=== PATIENT | male | born 1995 | race Caucasian/White ===

== ENCOUNTER 2019-11-06 12:06 | Emergency (ER) | payer SELFPAY ==
[~2019-11-06] VITALS: Ht 157.4 cm; Wt 86.2 kg
[~2019-11-06 12:06] MED LIST: ZITHROMAX Z PA250 MG PO
[2019-11-06] MEDS ORDERED: TESSALON PERLE100 M1 PO (15:02)
[2019-11-06] MEDS ORDERED: PROVENTIL HFA6.7 GM INH (15:02)
[2019-11-06] MEDS ORDERED: AMOXICILLIN500 M2 PO (15:08)
== END 2019-11-06 15:10 | disposition home or self-care (01) ==
LOC: ED 12:06
DX: J40 Bronchitis, not specified as acute or chronic (principal); F17.200 Nicotine dependence, unspecified, uncomplicated

== ENCOUNTER 2023-04-17 02:21 | Emergency (ER) | payer SELFPAY ==
[~2023-04-17] VITALS: Ht 167.6 cm; Wt 79.8 kg
[~2023-04-17 02:21] MED LIST changes: +AMOXICILLIN500 M2 PO; +PROVENTIL HFA6.7 GM INH; +TESSALON PERLE100 M1 PO
[2023-04-17 02:45] LABS: BASO # 0.1 10*3/uL (0.0-0.1); BASO % 0.6 % (0.0-1.0); EOS # 0.1 10*3/uL (0.0-0.4); EOS % 1.2 % (1.0-4.0); HEMATOCRIT 44.1 % (42.0-52.0); LYMPH % 23.6 % (27.0-41.0); MEAN CELL VOLUME 89.6 fl (80.0-94.0); MEAN CORPUSCULAR HGB 31.7 pg (27.0-31.0); MEAN CORPUSCULAR HGB CONC 35.4 g/dl (33.0-37.0); MEAN PLATELET VOLUME 9.8 fl (9.6-12.3); MONO # 0.7 10*3/uL (0.1-1.0); MONO % 8.1 % (3.0-9.0); NEUT # 5.5 10*3/uL (2.3-7.9); NEUT % 66.3 % (47.0-73.0); PLATELET COUNT AUTOMATED 302 10*3/uL (130-400); RED BLOOD COUNT 4.92 10*6/uL (4.50-5.90); RED CELL DISTRI WIDTH 11.9 % (0-14.5); WHITE BLOOD COUNT 8.3 10*3/uL (4.8-10.8)
[2023-04-17 02:55] LABS: ACT PARTIAL THROMBO TIME 29.2 SECONDS (20.0-32.1)
[2023-04-17 03:05] LABS: BILIRUBIN Negative (Negative); BLOOD Negative (Negative); CLARITY Clear (Clear); COLOR Yellow (Yellow); GLUCOSE Negative (Negative); KETONE Negative (Negative); LEUKO ESTERASE Negative (Negative); NITRITE Negative (Negative); PH 5.5 (4.5-8.0); SPECIFIC GRAVITY <= 1.005 (1.001-1.030); UROBILINOGEN 0.2 E.U./dl (0.0-1.0)
[2023-04-17 03:09] LABS: ALKALINE PHOSPHATASE 80 U/L (46-116); BUN 10 mg/dl (9-23); CHLORIDE 109 mmol/L (98-107); ETHYL ALCOHOL 258.4 mg/dl (<3); LIPASE 43 U/L (12-53); POTASSIUM 4.1 mmol/L (3.4-5.1); SGPT/ALT 18 U/L (10-49); TOTAL PROTEIN 7.8 gm/dL (6.0-8.0)
[2023-04-17 03:12] LABS: URINE AMPHETAMINES Negative (1000ng/ml); URINE BARBITURATES Negative (200ng/ml); URINE BENZODIAZEPINES Negative (200ng/ml); URINE CANNABINOIDS (THC) Negative (50ng/ml); URINE COCAINE Negative (300ng/ml); URINE METHADONE Negative (300ng/ml); URINE OPIATES Negative (300ng/ml); URINE PHENCYCLIDINE Negative (25ng/ml)
[2023-04-17 03:14] LABS: EPITHELIAL CELLS 0-2
== END 2023-04-17 04:54 | disposition home or self-care (01) ==
LOC: ED 02:21
PROVIDERS: Internal Medicine
DX: R41.82 Altered mental status, unspecified (principal); F10.129 Alcohol abuse with intoxication, unspecified; Z91.013 Allergy to seafood; Y90.8 Blood alcohol level of 240 mg/100 ml or more